=== PATIENT | male | born 1935 | race Caucasian/White ===

== ENCOUNTER 2025-07-09 15:01 | Outpatient (AMB) | payer MEDICARE, SELFPAY ==
--- OUTSIDE RECORDS SUMMARY | 2025-07-09 16:22 | XMS_ITS | Patient Health Record ---
Author Organization [facility] Address [address] [facility] [address] [place] [address] Care Team Providers Care Peanut Sheller Name Role Phone Shaheed Canela Primary Care Provider Unav Jacqueline Troncoso Unavailable [phone] Cornelius Gallego Unavailable [phone] Brian Nichols Unavailable [phone] Allergies Allergen (clinical drug ingredient) Drug/Non Drug Allergy documented on EMR Reaction Allergy Type Onset Date Status clotrimazole Clotrimazole Unknown Drug Allergy A ctive Motrin Unknown Drug Allergy Active Novocain Unknown Drug Allergy Active Saw [place] Unknown Drug Allergy Acti ve diazepam Valium Unknown Drug Allergy Active amlodipine Amlodipine Unknown Drug Allergy Activ e aspirin Aspirin Unknown Drug Allergy Active epinephrine Epinephrine Unknown Drug Allergy Act belinda Mold Unknown Allergy Active Penicillin Unknown Drug Allergy Active Vaccine product containing Streptococcus pneumoniae antigen (medicinal product) Pneumococcal Vaccines Unknown Drug Allergy Active Substance with sulfonamide structure and antibacterial mechanism of action (substance) Sulfa Antibiotics Unknown Drug Allergy Active Tomatoes Unknown Allergy Active vancomycin Vancomycin Unknown Drug Allergy Activ e Reason For Referral Reason Insurance Referral Diagnosis 1 Unspecified open wou nd, left lower leg, initial encounter (S83.860A) Referred Organization [facility] Referred Provider Jacqueline Arreaga Referred Address [address] [place], [place],[address], Referred Provider Specialty General Prac barbara Referral Priority Routine Medications Medication SIG (Take, Route, Frequency, Duration) Notes Start Date End Date Status Metoprolol Succinate 25 MG 1 capsule Ora lly Once a day 04/17/2024 Active Triamcinolone Acetonide 0.025 % 1 application Externally Twice a day 07/18/2024 Active Foam Dressing Bordered - as directed to left leg wound Externally every other day; Duration: 30 days Mepilex foam dressing with silicone border 4x4 12/03/2024 11/28/2025 Active Warfarin Sodium 2 MG 1 tablet Orally Onc e a day Active Loratadine 10 MG 1 tablet Orally twic e a day 10/19/2024 Active Lisinopril 2.5 MG 1 tablet Orally Once a day Active Magnesium Oxide 400 MG 1 tablet as neede d Orally twice daily Active Famotidine 20 MG take one tablet by m outh once daily for stomach acid Orally Once a day 10/19/2024 Active Metoprolol Succinate 100 MG 1 capsule Orally Once a day 10/19/2024 Active Vitamin D 50 MCG (1999) 1 tablet Oral ly Once a day Active Plavix 75 MG 1 tablet Orally Once a day Active Questran 4 GM 1 packet mixed with water or non-carbonated drink Orally Once a day Active Problems Problem Type SNOMED Code ICD Code Onset Dates Problem Status W/U Status Risk Notes Problem Asthma (disorder) (192148914) Asthma, unspecified, unspecified status (493.90) Active confirmed Problem 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 cell carcinoma of skin of other part of trunk (C44.529) Active confirmed Problem Malignant neoplasm of prostate (073919343) Malignant neoplasm of prostate (C61) Active confirmed Problem Essential hypertension (37189627) Essential (primary) hypertension (I10) Active confirmed Problem Eosinophilic esophagitis (704803770) Eosinophilic esophagitis (K20.0) Active confirmed Problem Skin ulcer of calf (459367669) 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) Active confirmed Problem Open wound of left lower leg (3501027401529927 6) Unspecified open wound, left lower leg, subsequent encounter (S81.802D) Active confirmed Problem Peripheral vascular disease (353074582) Peripheral vascular disease (I73.9) Active confirmed Problem Chronic venous insufficiency (21033144) Chronic venous insufficiency (I87.2) Active confirmed Problem Hypertension (85737366) Hypertension (I10) Active confirmed Problem Iron deficiency anemia (23253673) Iron deficiency anemia (D50.9) Active confirmed Vital Signs Heart Rate 62 /min 02/01/2025 Temperature 97.2 degrees Fahrenheit 02/01/2025 Respiratory Rate 18 /min 02/01/2025 Height-cm 175.26 cm 02/01/2025 Oximetry 94 % 02/01/2025 Blood pressure diastolic 62 mm Hg 02/01/2025 Weight-kg 72.12 kg 02/01/2025 Height 69 in 02/01/2025 Blood pressure systolic 129 mm Hg 02/01/2025 Weight 159 lbs 02/01/2025 BMI 23.48 kg/m2 02/01/2025 Encounters Encounter Location Date Provider Diagnosis [address] [address] 10/29/2024 Brian Nichols Iron deficiency anemia D50.9 ; Unspecified open wound, left lower leg, initial encounter S81.802A and Hypertension I10 [address] [address] 11/05/2024 Brian Nichols Iron deficiency anemia D50.9 ; Unspecified open wound, left lower leg, subsequent encounter S81.802D and Hypertension I10 [address] [address] 11/19/2024 Jacqueline Arreaga Iron deficiency anemia D50.9 ; Unspecified open wound, left lower leg, subsequent encounter S81.802D and Hypertension I10 [address] [address] 11/26/2024 Jacqueline Arreaga Iron deficiency anemia D50.9 ; Unspecified open wound, left lower leg, subsequent encounter S81.802D and Hypertension I10 [address] [address] 12/03/2024 Jacqueline Arreaga Iron deficiency anemia D50.9 ; Unspecified open wound, left lower leg, subsequent encounter S81.802D and Hypertension I10 [address] [address] 12/10/2024 Jacqueline Arreaga Non-pressure chronic ulcer of left calf with fat layer exposed L97.222 ; Chronic venous insufficiency I87.2 ; Iron deficiency anemia D50.9 and Hypertension I10 [address] [address] 12/17/2024 Jacqueline Arreaga Non-pressure chronic ulcer of left calf with fat layer exposed L97.222 ; Chronic venous insufficiency I87.2 ; Iron deficiency anemia D50.9 and Hypertension I10 [facility] [address] [address] 01/04/2025 Anzhela Savonina Non-pressure chronic ulcer of left calf with fat layer exposed L97.222 ; Chronic venous insufficiency I87.2 ; Iron deficiency anemia D50.9 and Hypertension I10 [facility] [address] [address] 01/11/2025 Brian Nichols Non-pressure chronic ulcer of left calf with fat layer exposed L97.222 ; Chronic venous insufficiency I87.2 ; Iron deficiency anemia D50.9 and Hypertension I10 [facility] [address] [address] 01/18/2025 Anzhela Savonina Non-pressure chronic ulcer of left calf with fat layer exposed L97.222 ; Chronic venous insufficiency I87.2 ; Peripheral vascular disease I73.9 ; Iron deficiency anemia D50.9 and Hypertension I10 [facility] [address] [address] 01/25/2025 Anzhela Savonina Non-pressure chronic ulcer of left calf with fat layer exposed L97.222 ; Chronic venous insufficiency I87.2 ; Peripheral vascular disease I73.9 ; Iron deficiency anemia D50.9 and Hypertension I10 [facility] [address] [address] 02/01/2025 Anzhela Savonina Non-pressure chronic ulcer of left calf with fat layer exposed L97.222 ; Chronic venous insufficiency I87.2 ; Peripheral vascular disease I73.9 ; Iron deficiency anemia D50.9 and Hypertension I10 [facility] [address] [address] 10/26/2024 Jacqueline Arreaga [facility] [address] [address] 11/05/2024 Brian Nichols [facility] [address] [address] 11/09/2024 Jacqueline Arreaga [facility] [address] [place] [address] 11/12/2024 Jacqueline Arreaga [facility] [address] [place] [address] 01/07/2025 Jacqueline Arreaga [facility] [address] [place] [address] 01/09/2025 Cornelius Gallego Assessments Encounter Date Diagnosis (ICD Code) Assessment Notes Treatment Notes Treatment Clinical Notes Section Notes 10/29/2024 Unspecified open wound, left lower leg, initial encounter (ICD-10 - S81.802A) 10/29/2024 Iron deficiency anemia (ICD-10 - D50.9) 11/05/2024 Unspecified open wound, left lower leg, subsequent encounter (ICD-10 - S81.802D) 11/05/2024 Iron deficiency anemia (ICD-10 - D50.9) 11/19/2024 Iron deficiency anemia (ICD-10 - D50.9) 12/03/2024 Iron deficiency anemia (ICD-10 - D50.9) 12/10/2024 Non-pressure chronic ulcer of left calf with fat layer exposed (ICD-10 - L97.222) 11/26/2024 Iron deficiency anemia (ICD-10 - D50.9) 12/17/2024 Non-pressure chronic ulcer of left calf with fat layer exposed (ICD-10 - L97.222) His CATIA indicates moderate arterial insufficiency, however, he still may be able to heal this mid calf wound. I discussed the importance of continuing to be active and walking and wearing mild compression for waking hours. The ulcer measures slightly smaller and edema is better controlld. He is slowly improving with no signs of skin infection. D/c Santyl and begin Aquacel Ag every other day. After examination, I discussed the indication of debridement and they were agreeable. I then performed debridement to remove devitalized tissues as outlined. He tolerated procedure well. S/S of infection reviewed and when to go to ED. I, Jacqueline Arreaga [employer] L[employer] STRAIGHTENER-Dirk, examined, evaluated , and treated the patient. Dr. Rory Mitchell was available for any questions or concerns that I may have had. 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 I removed the dressing and examined the wound located on the left mid calf. Wound is measuring smaller, wound bed contains slough, epibole is present, no surrounding erythema or signs of infectious process. With patients permission, I performed debridement of the wound as outlined above. Wound was cleaned with saline and Aquacel ag was applied to the wound bed, zinc to periwound secured with dsd. Compression stockings applied. He tolerated the procedure. Lawson returns today for a follow up visit. His wound is improving, measuring smaller. He will continue with Aquacel ag to the wound every other day. Reviewed his ABIs, revealing moderate arterial insufficiency, he is making progress in the healing therefore we will hold off on vascular consult unless wound healing stalls. He will continue with gentle compression. Reviewed signs of infection and when to report. He will return in 1 week for a follow up visit. I spent 22 minutes of direct and indirect care of this patient reviewing records, gathering H&P, evaluation, formulating plan, education and documentation. I Cornelius CASPER-Dirk, examined, evaluated and treated the patient. Dr. Rory Mitchell was available for any question or concerns that I may have had. 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 He endorses dressing changes independently with Aquacel. He continues with compression for BLE edema control with no concerns. On exam, Lawson, vital signs stable, afebrile. We removed the dressing and I examined the wound. There is no foul odor or underlying s/s of infectious property. Left mid-calf wound is noted with improvement based on assessment and measurements from last visit. The wound bed has granulated tissue and minimal slough. The periwound is noted with fibrinous/callused edge. I reviewed indication of debridement, and he was agreeable. I performed debridement of the wound as outlined above to removed devitalized tissue. Wound was cleaned with saline and Aquacel ag was applied to the wound bed, zinc to periwound secured with DSD. Compression stockings applied. He tolerated the procedure. Continue with current treatment and changing every other day continue with weekly wound care follow up I Brian Nichols, MSN, HVAC TECHNICIAN, [employer] STRAIGHTENER-C, examined, evaluated and treated the patient. Dr. Rory Mitchell was available for any question or concerns that I may have had. 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 I removed the dressing and examined the wound located on the left mid calf. Wound is measuring smaller, wound bed contains slough, epibole is present, no surrounding erythema or signs of infectious process. With patients permission, I performed debridement of the wound as outlined above and I used silver nitrate to cauterize epibole. Wound was cleaned with saline and Aquacel ag was applied to the wound bed, zinc to periwound secured with dsd. Compression stockings applied. He tolerated the procedure. Lawson returns today for a follow up visit. His wound is improving, measuring smaller. He will continue with Aquacel ag to the wound every other day. Reviewed his ABIs, revealing moderate arterial insufficiency, he is making progress in the healing therefore we will hold off on vascular consult unless wound healing stalls. He will continue with gentle compression. Reviewed signs of infection and when to report. He will return in 1 week for a follow up visit. I Cornelius Gallego [employer] STRA[employer]-C, examined, evaluated and treated the patient under supervision of Maurisio Mitchell MD, who is present in the office guiding my management plan. I confirm that the care as initially planned and subsequently discussed with Dr. Mitchell is as described and documented. 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 I removed the dressing and examined the wound located on the left mid calf. Wound continues to improve, measuring half the size from last visit, wound bed contains slough, epibole is present, no surrounding erythema or signs of infectious process. There is hemosiderin staining to pretibial area. With patients permission, I performed debridement of the wound as outlined above and I used silver nitrate to cauterize epibole. Wound was cleaned with saline and Aquacel ag was applied to the wound bed, zinc to periwound secured with dsd. Compression stockings applied. He tolerated the procedure. Lawson returns today for a follow up visit. His wound is improving, measuring significantly smaller today. He will continue with Aquacel ag to the wound every other day. Reviewed his ABIs, revealing moderate arterial insufficiency, he is making progress in the healing therefore we will hold off on vascular consult unless wound healing stalls. He will continue with gentle compression. Reviewed signs of infection and when to report. He will return in 1 week for a follow up visit. I Cornelisu ALBERTO, examined, evaluated and treated the patient. Dr. Rory Mitchell was available for any question or concerns that I may have had. 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 I removed the dressing and examined the wound located on the left mid calf. Wound has re-epithelialized, there is a dry scab present, no surrounding erythema or signs of infection. We applied skin prep and covered with dsd. I advised him to keep the scab covered until the scab falls off. Encouraged daily moisturizer. He does not need any further follow up. Thank you for allowing us to participate in your care. I Cornelius ALBERTO, examined, evaluated and treated the patient. Dr. Rory Mitchell was available for any question or concerns that I may have had. 02/01/2025 Chronic venous insufficiency (ICD-10 - I87.2) 01/25/2025 Chronic venous insufficiency (ICD-10 - I87.2) 01/18/2025 Peripheral vascular disease (ICD-10 - I73.9) 01/11/2025 Chronic venous insufficiency (ICD-10 - I87.2) 01/04/2025 Iron deficiency anemia (ICD-10 - D50.9) 12/17/2024 Chronic venous insufficiency (ICD-10 - I87.2) 12/03/2024 Unspecified open wound, left lower leg, subsequent encounter (ICD-10 - S81.802D) 12/10/2024 Chronic venous insufficiency (ICD-10 - I87.2) 11/26/2024 Unspecified open wound, left lower leg, subsequent encounter (ICD-10 - S81.802D) 11/19/2024 Unspecified open wound, left lower leg, subsequent encounter (ICD-10 - S81.802D) 11/05/2024 Hypertension (ICD-10 - I10) 10/29/2024 Hypertension (ICD-10 - I10) 11/19/2024 Hypertension (ICD-10 - I10) 11/26/2024 Hypertension (ICD-10 - I10) 12/03/2024 Hypertension (ICD-10 - I10) 01/11/2025 Iron deficiency anemia (ICD-10 - D50.9) 01/04/2025 Hypertension (ICD-10 - I10) 12/10/2024 Iron deficiency anemia (ICD-10 - D50.9) 12/17/2024 Iron deficiency anemia (ICD-10 - D50.9) 01/25/2025 Peripheral vascular disease (ICD-10 - I73.9) 02/01/2025 Peripheral vascular disease (ICD-10 - I73.9) 01/18/2025 Iron deficiency anemia (ICD-10 - D50.9) 01/25/2025 Iron deficiency anemia (ICD-10 - D50.9) 02/01/2025 Iron deficiency anemia (ICD-10 - D50.9) 01/18/2025 Hypertension (ICD-10 - I10) 01/11/2025 Hypertension (ICD-10 - I10) 12/17/2024 Hypertension (ICD-10 - I10) 12/10/2024 Hypertension (ICD-10 - I10) 01/25/2025 Hypertension (ICD-10 - I10) 02/01/2025 Hypertension (ICD-10 - I10) 10/29/2024 Tara Pathak is an [id number]-rke-male, presents today for initial evaluation and treatment of wound of left lower extremity Past medical history is significant for HTN, BPH, NOA, squamous cell carcinoma of trunk, DVT, asthma The patient reports that the wound was first noted 07/14/24 after bumping leg on table and [facility] has [facility] however he has been to [facility] and ED with no ABX at this time. He has oversite of [facility] and was seen last week. current treatment with aquacel but reports sticking to his leg. So today will add adaptic and obtain catia at next visit, On assessment today, Lawson is noted to be afebrile and other VS were within normal limits. The patient denies pain or discomfort related to wound. We removed dressings, with no suggestive s/s of an underlying infectious process. There was no foul odor noted. Wound located to left later lower leg, trauma wound: His wound is noted with hypergranulated tissue to the wound bed with mod drainage. Fibrnous periwound with dry slough. After examination, I discussed the indication of debridement and they were agreeable. I then performed debridement to remove devitalized tissues as outlined. He tolerated procedure well. Additionally, Silver nitrate was also applied to the hypergranulated areas. The wound site were then cleansed with wound cleanser and thereafter, we applied adaptinc then aquacell onto the wound site and zinc to aura wound areas. The site were then covered with a dry dressing. Patient was educated on elevating their legs and protect wound site Patient will be performing dressing changes every other day need CATIA done for arterial to ensure good blood flowS/S of infection reviewed and when to go to EDPatient will have FU in one week Reviewed past medical records, labs, hospitalizations, performed a complete wound assessment to assist in the identification of underlying cause of the wound to individualize treatment plan going forward. Will obtain consultations as indicated from different disciplines if not already involved with current care, including but not limited to: vascular intervention, endocrine, diabetic and nutrition education, infectious disease, dermatology, surgery. Will continue to review and assess interventions including but not limited to orthotics, and compression therapy, CATIA, labs, and cultures. Documentation will be provided to primary physicians or referring physicians to keep them informed of patients' progress. Due to the many factors that impact the healing of wounds, including but not limited to endocrine disorder, autoimmune disorders, Diabetes, weight gain, cardiovascular disease, poor circulation, and medications, and more not listed, and the role they play on the delay in wound healing, all referrals will be made promptly as well as discussed with patient prior too. We reviewed the importance of multidisciplinary team to maximize wound outcomes.patient verbalized understand and denies questions or concerns at this time A total of 35 minutes was spent on this visit (face to face and non face to face) documenting HPI and performing physical exam, reviewing previous notes and testing, reviewing and adjusting treatment plan, counseling the patient on treatment choices, disease process, expected outcomes, and documenting the findings in the note. Gwen Nichols, MSN, HVAC TECHNICIAN, [employer] STRAIGHTENER-C, examined, evaluated , and treated the patient. Dr. Rory Mitchell was available for any questions or concerns that I may have had. 11/05/2024 Other Lawson presents today with his with for follow-up treatment of wound of left lower extremity. They report dressing changes regularly with current treatment consisting of Adaptic, then Aquacel to wound bed with zinc to periwound and dry dressing every other day. No other acute concerns at today's visit. On assessment today, Lawson is noted to be afebrile and other VS were within normal limits. The patient denies pain or discomfort related to wound. We removed dressings, with no suggestive s/s of an underlying infectious process. There was no foul odor noted. Wound located to left later lower leg, trauma wound has improved since last visit based on assessment and measurements: The wound is noted with granulated tissue to the wound bed with mod drainage. Fibrinous periwound. After examination, I discussed the indication of debridement and they were agreeable. I then performed debridement to remove devitalized tissues as outlined. He tolerated procedure well. Additionally, Silver nitrate was also applied to the hypergranulated areas. The wound site were then cleansed with wound cleanser and thereafter, we applied Adaptic then Aquacel onto the wound site and zinc to aura wound areas. The site were then covered with a dry dressing. Patient was educated on elevating their legs and protect wound site Patient and his will be performing dressing changes every other day need CATIA done for arterial to ensure good blood flow at next visitS/S of infection reviewed and when to go to ED 11/05/24: [facility] at todays visitPatient will have FU two weeks I Brian Nichols, MSN, HVAC TECHNICIAN, [employer] STRAIGHTENER-C, examined, evaluated, and treated the patient. Dr. Rory Mitchell was available for any questions or concerns that I may have had. 11/19/2024 Other His wound is stable and is slow healing and there are no signs of skin infection. He does have chronic edema and I highly recommend using compression in the form of Tubigrip. Wear during waking hours only. He will cont Adaptic, then Aquacel to wound bed with zinc oxide to periwound and dry dressing every other day. After examination, I discussed the indication of debridement and they were agreeable. I then performed debridement to remove devitalized tissues as outlined. He tolerated procedure well. Additionally, Silver nitrate was also applied to the hypergranulated areas. The wound site were then cleansed with wound cleanser and thereafter, we applied Adaptic then Aquacel onto the wound site and zinc to aura wound areas. The site were then covered with a dry dressing. Patient was educated on elevating their legs and protect wound site Patient and his will be performing dressing changes every other day CATIA to be rescheduled for next week to assess his arterial perfusion.S/S of infection reviewed and when to go to ED. I have personally spent 20 minutes total time today in preparation, patient care, and documentation for this visit, including the following: review of clinical lab tests; review of medical tests/procedures/ser vices. I, Jacqueline ALBERTO, examined, evaluated , and treated the patient. Dr. Rory Mitchell was available for any questions or concerns that I may have had. 11/26/2024 Other His CATIA indicates moderate arterial insufficiency, however, he still may be able to heal this mid calf wound. I discussed the importance of continuing to be active and walking. His wound is stable and is slow healing and there are no signs of skin infection.I recommend beginning Santyl daily. I sent a Rx to the [place] pharmacy in [place]. Until he receives this, he will cont Adaptic, then Aquacel to wound bed with zinc oxide to periwound and dry dressing every other day. After examination, I discussed the indication of debridement and they were agreeable. I then performed debridement to remove devitalized tissues as outlined. He tolerated procedure well. Today, we used SSD cream to the wound bed and barrier cream to the periwound. Patient was educated on elevating their legs and protect wound site Patient and his will be performing dressing changes daily. they would prefer [facility] to assist with dressing changes, so we can set up this referral. S/S of infection reviewed and when to go to ED. I have personally spent 20 minutes total time today in preparation, patient care, and documentation for this visit, including the following: review of clinical lab tests; review of medical tests/procedures/ser vices. Jacqueline Hidalgo, examined, evaluated , and treated the patient. Dr. Rory Mitchell was available for any questions or concerns that I may have had. 12/03/2024 Other He began using Santyl last week and there is healthy granulation tissue without evidence of infection. His CATIA indicates moderate arterial insufficiency, however, he still may be able to heal this mid calf wound. I discussed the importance of continuing to be active and walking and wearing mild compression for waking hours. He will try CARLOS wrap for waking hours since he did not like the tubigrip. I asked him to elevate ankles to heart level when resting. It sounds as though he is up and active most of the day shopping, doing errands and cooking meals. I sent a Rx for 4x4 Mepilex silicone dressing with gentle borderd to the [place] pharmacy in [place] today. After examination, I discussed the indication of debridement and they were agreeable. I then performed debridement to remove devitalized tissues as outlined. He tolerated procedure well. Today, we used his Santyl to the wound bed and barrier cream to the periwound. S/S of infection reviewed and when to go to ED. IJacqueline, examined, evaluated , and treated the patient. Dr. Rory Mitchell was available for any questions or concerns that I may have had. 12/10/2024 Other He is slowly improving with no signs of skin infection. Cont using Santyl daily. His CATIA indicates moderate arterial insufficiency, however, he still may be able to heal this mid calf wound. I discussed the importance of continuing to be active and walking and wearing mild compression for waking hours. He will try mild compression stockings OTC 8-15mmHg for waking hours since he did do well with CARLOS or tubigrip. I asked him to elevate ankles to heart level when resting. It sounds as though he is up and active most of the day shopping, doing errands and cooking meals. After examination, I discussed the indication of debridement and they were agreeable. I then performed debridement to remove devitalized tissues as outlined. He tolerated procedure well. Today, we used his Santyl to the wound bed and barrier cream to the periwound. S/S of infection reviewed and when to go to ED. I, Jacqueline ALBERTO, examined, evaluated , and treated the patient. Dr. Rory Mitchell was available for any questions or concerns that I may have had. 01/18/2025 Other I, Maurisio Mitchell MD confirm that Alejandrajavad Julián ALBERTO understands and adheres to the guidelines of the established clinical protocols in the office. I confirm the above care provided was rendered under my general supervision as initially planned and subsequently discussed and supervised by me. 01/25/2025 Other Plan Of Treatment No Information Insurance Providers Payer Name Payer Address Payer Phone Subscriber Number Group Number Insured Name Patient Relationship to Insured Coverage Start Date Coverage End Date [address] [id number] Lawson Grewal Self - patient is the insured Medicare [address] [facility] [place] [id number] Lawson Grewal Self - patient is the insured Medical (General) History Medical History History ICD Code Benign prostatic hyperplasia without low er urinary tract symptoms N40.0 Intestinal infections due to clostridium difficile 008.45 Elevated prostate specific antigen (PSA) 790.93 Eosinophilic esophagitis K20.0 Essential (primary) hypertension I10 Unspecified hearing loss 389.9 Hyperkalemia E87.5 Iron deficiency anemia D50.9 Malignant neoplasm of prostate C61 Malignant neoplasm of prostate C61 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
--- OUTSIDE RECORDS SUMMARY | 2025-07-09 16:23 | XMS_ITS | Patient Health Record ---
Author Organization [facility] Address [address] [place] [id number] Care Team Providers Care Pad Extraction Tender Name Role Phone Marcell Robison Jr Reason For Referral No Information Plan Of Treatment No Information
--- OUTSIDE RECORDS SUMMARY | 2025-07-09 16:23 | XMS_ITS | Clinical Summary ---
Author Organization [facility] Address [address] [place] [address] Phone Care Team Providers Care Donor Processor Name Role Phone Naga Bah MD Primary Care Provider + Allergies Active Allergy Reactions Criticality Noted Date Comments Amlodipine 10/16/2020 Aspirin 01/12/2018 Clotrimazole 10/15/2024 Epinephrine 10/16/2020 Ferrous Sulfate 10/15/2024 Furosemide 03/26/2024 Mold 10/15/2024 Ibuprofen Pain Low 10/16/2020 Procaine 01/12/2018 Ofloxacin 03/15/2025 itchiness Penicillins Hives 10/16/2020 Pneumococcal 23-Nuria Ps Vaccine 10/16 Saw [place] 03/15/2025 Simvastatin 03/15/2025 Sulfa (Sulfonamide Antibiotics) 12/23 Tetanus Immune Globulin 03/15/2025 Tomato 10/16/2020 Diazepam 07/21/2018 Vancomycin 10/16/2020 Medications lisinopril (PRINIVIL,ZESTR IL) 2.5 MG tablet TAKE ONE TABLET BY MOUTH ONCE DAILY TO CONTROL BLOOD PRESSURE 1 Active famotidine (PEPCID) 20 MG tablet Take 20 mg by mouth nightly at bedtime. 0 Active fluticasone propionate (FLONASE) 50 mcg/actuation nasal spray INSTILL 2 SPRAYS INTO EACH NOSTRIL DAILY FOR NASAL IRRITATION/INFLA MMATION 0 Active loratadine (CLARITIN) 10 mg tablet TAKE ONE TABLET BY MOUTH ONCE DAILY NEEDED FOR ALLERGY 0 Active aspirin 81 mg chewable tablet Take 1 tablet (81 mg total) by mouth daily. 1 Active Additional Information Patient not taking.Reported on 10/15/2024 atorvastatin (LIPITOR) 80 MG tablet Take 1 tablet (80 mg total) by mouth daily. 1 Active Additional Information Patient not taking.Reported on 10/15/2024 clopidogrel (PLAVIX) 75 mg tablet Take 1 tablet (75 mg total) by mouth daily. 1 Active nitroglycerin (NITROSTAT) 0.[address] 1 tablet (0.4 mg total) under the tongue every 5 (five) minutes as needed for chest pain. 1 Active Additional Information Patient not taking.Reported on 03/26/2022 heparin 100 units/mL infusion Inject 0-1,817.9 Units/hr into the vein continuous. 1 Active Additional Information Patient not taking.Reported on 10/15/2024 warfarin (COUMADIN) 2 MG tablet Take 4 mg by mouth nightly at bedtime. 2 Active metoprolol succinate (TOPROL-XL) 50 MG 24 hr tabletIndicatio ns:Medication dose decreased Take 1.5 tablets (75 mg total) by mouth daily. 135 tablet 3 2 Active furosemide (LASIX) 40 MG tablet Take 1 tablet (40 mg total) by mouth daily for 2 days. 2 tablet 4 Active magnesium oxide-Mg AA chelate (MAGNESIUM, OXIDE/AA CHELATE,) 300 mg Cap Take 400 mg by mouth. 3 Active amLODIPine (NORVASC) 2.5 MG tablet Take 2.5 mg by mouth. 4 Active Active Problems Problem Noted Date Diagnosed Date Acute coronary syndrome 09/09/2021 Assessment & Plan (03/15/2025 9:47 AM EDT): This patient had PCI to the grafts after bypass surgery but has not had any interventions done in quite some time I have ordered him an echo Assessment & Plan (09/25/2021 1:38 PM EDT): Patient doing well after discharge from [facility]. Continue cardiac medications as documented. Patient assured that he can continue 75 mg daily metoprolol as he is feeling better at this dose (it was decreased to 50 mg daily back in January as it was thought that the higher dose may be contributing to fatigue). Assessment & Plan (09/10/2021 1:20 PM EDT): Patient of Dr. Feliz presenting with many hours of substernal chest pain radiating to the jaw, with enzyme evidence of non-ST elevation RI. His EKG did not show any acute ischemia. Symptoms improved with sublingual nitro. His cpr ambulance driver has recommended aspirin(patient has a documented allergy to aspirin but he states that this was after taking it for an extended period of time and it made him short of breath , he tolerated today's dosing fine.), Statin, and heparin drip. Plan remains for cardiac cath later this afternoon. has requested that we bring his INR down slightly for the procedure. He is okay with stopping the heparin drip, with plans to restart it after the procedure. Discussed with blood bank, FFP 3 units to be given stat, with PT/INR draw about 2 hours after that. His lungs were going in the right direction he will likely have this procedure this afternoon. Hypercoagulable state 01/04/2018 Assessment & Plan (07/21/2018 2:38 PM EDT): He has been taking Coumadin for years. He is interested in coming off of the Coumadin and replacing it with eliquis. I have prescribed 5 mg of eliquis to be taken twice daily. He has been off of his Coumadin for about 6 days. He will start the eliquis tomorrow as per the suggestion of his blue print control clerk. 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 He is unable to tolerate statins. He has tried 5 of them. He is only taking fish oil. He tells me his lipids are checked by his physician at the [place]. His blood pressure today is normal. He exercises regularly and his tells me that they follow a heart healthy diet. We will arrange for follow-up with Dr. Salas in 6 months. Mixed hyperlipidemia 12/14/2017 Assessment & Plan (03/15/2025 9:48 AM EDT): LDL should be aggressively controlled at less than 70 Assessment & Plan (09/25/2021 1:39 PM EDT): Reports PCP is following yearly lipid panel. Continue 80 mg atorvastatin daily. Other pulmonary embolism without acute cor pulmo nale 12/14/2017 Assessment & Plan (09/10/2021 1:20 PM EDT): Patient with a history of DVT PE. He is maintained on Coumadin 4 mg daily. INR was therapeutic on admission. As above Encounters Date Type Department Care Team Description 06/18/2025 Telephone [facility] [place] [address], [address] [place] [address] Lawson Gamez, 05/09/2025 3:03 PM EDT - 05/09/2025 11:59 PM EDT Hospital Encounter [place] [address] Lawson Gamez, DO Discharge Disposition: Home or Self Care 03/15/2025 Procedure Pass [place] [address] from Last 3 Months Immunizations Immunization Administration Dates Next Due DTaP, unspecified formulation 06/21/2012 Influenza, Unspecified Formulation 08/21/2007 Pneumococcal, Unspecified Formulation 03/20/2004 Td, unspecified formulation 11/21/2002 Family History Medical History Relation Comments Lupus Daughter 1 No Known Problems Son 1 No Known Problems Son 2 No Known Problems Son 3 Relation Status Comments Daughter 1 Daughter 2 Alive Father Mother Son 1 Alive Son 2 Alive Son 3 Alive Social History Tobacco Use Types Packs/Day Years Used Date Smoking Tobacco: Former Smokeless Tobacco: Never Tobacco Cessation:Counseling Given: Not Answered Comments:quit 62 years ago Alcohol Use Standard Drinks/Week Comments Yes 0 (1 standard drink = 0.6 oz pur e alcohol) beer once weekly Education Answer Date Recorded Are you interested in more education? Not on celina e 03/18/2023 Are you concerned about learning? Not on file 03/18/2023 No 03/18/2023 No 03/18/2023 Digital Access Answer Date Recorded No 04/16/2023 No 04/16/2023 Reliable internet access at home? Not on file 04/16/2023 Device with a working camera? Not on file Intimate Partner Violence Answer Date R ecorded Are you denied basic needs s uch as food, clothing, or medical care? No 02/01/2025 In the past 12 months have y ou been in a relationship with a person who hurts, threatens, or tries to control you? No 02/01/2025 Are you denied basic needs s uch as food, clothing, or medical care? No 02/01/2025 In the past 12 months have y ou been in a relationship with a person who hurts, threatens, or tries to control you? No 02/01/2025 Sex and Gender Information Value Date Recorded Sex Assigned at Male 09/09/2021 5:35 AM EDT Legal Sex Male 10:14 PM EDT Gender Identity Male 09/09/2021 5:35 AM EDT Sexual Orientation Straight 09/09/2021 5: 35 AM EDT Last Filed Vital Signs Vital Sign Reading Time Taken Comments Blood Pressure 110/58 03/15/2025 9:13 AM EDT Pulse 65 03/15/2025 9:13 AM EDT Temperature 36.4 C (97.5 F) 02/01/2025 4:42 PM EDT Respiratory Rate 20 02/01/2025 4:42 PM EDT Oxygen Saturation 95% 03/15/2025 9:13 AM EDT Inhaled Oxygen Concentration - - Weight 69.4 kg (153 lb) 03/15/2025 9:13 AM EDT Height 175.3 cm (5' 9.02 ) 03/15/2025 9:13 AM ED T Body Mass Index 22.58 03/15/2025 9:13 AM EDT Plan of Treatment Upcoming Encounters Date Type Department Care Team (Late st Contact Info) Description 07/23/2025 1:45 PM EDT Office Visit [facility] [address], [address] [place] [address] Lawson Gamez DO [address] [place] [address] [phone] [email or web address] Health Maintenance Due Date Last Done Comments DEPRESSION SCREENING 1947 ZOSTER VACCINES (1 of 2) 1986 RSV VACCINE (1 - 1-dose 75+ series) 2011 Adult Td,Tdap Booster 06/21/2022 06/21/2012 , 01/20/2008, 11/21/2002, Additional history exists COVID-19 VACCINE ( season) 2024 CREATININE LEVEL 02/01/2026 02/01/2025, 04/2024, 03/16/2024, Additional history exists POTASSIUM LEVEL 02/01/2026 02/01/2025, 05/0 04/2024, 03/16/2024, Additional history exists HEPATITIS A VACCINES Aged Out No long er eligible based on patient's age to complete this topic HIB VACCINES Aged Out No longer eligi ble based on patient's age to complete this topic MENINGOCOCCAL VACCINES (ACWY) Aged Out No longer eligible based on patient's age to complete this topic MENINGOCOCCAL VACCINES (B) Aged Out N o longer eligible based on patient's age to complete this topic Medical Devices Not on file Procedures Procedure Name Priority Date/Time Associated Diagnosis Comments TTE COMPREHENSIVE Routine 05/09/2025 4:1 0 PM EDT Shortness of breath BASIC METABOLIC PANEL STAT 02/01/2025 1:22 PM EDT from Last 3 Months or Most Recently Relevant to Health Maintenance Results * TTE COMPREHENSIVE (05/09/2025 4:10 PM EDT) Height 175 cm Weight 69 kg Systolic BP 139 mmHg Diastolic BP 69 mmHg Interventricular Septum Thickness 12 6 - 11 mm Left Ventricle Internal Diameter End Diastole 64 42 - 58 mm Left Ventricle Internal Diameter End Systole 46 <40 mm Left Ventricular Outflow Tract Diameter 22.0 mm Left Ventricular Posterior Wall Thickness 11 6 - 11 mm Left Ventricle Ea Lateral Wave Speed 7.3 cm/s Left Ventricle Ea Septal Wave Speed 3.4 cm/s Ejection Fraction 62 50 - 75 Percent Left Atrium Dimension Anterior-Posterior 53 15 - 40 mm Aortic Valve Regurgitation Pressure Half Time 854 ms Aortic Valve Peak Velocity 1.4 m/s Aortic Valve Peak Gradient 8 mmHg Aortic Valve Mean Gradient 4 mmHg Aortic Valve Time Velocity Integral 279.0 mm Aortic Arch Diameter 27 mm Aortic Sinus Diameter 40 <40 mm Ascending Aorta Diameter 30 <36 mm Inferior Vena Cava Diameter 25 <21 mm Mitral Valve Aliasing Velocity 30.8 cm/s Mitral Valve PISA Radius 1.30 cm Mitral Valve Regurgitation Time Volume Integral 157.0 cm Mitral Valve Mean Gradient 3 mmHg Mitral Valve Peak Velocity 551.0 cm/s Mitral Valve Peak Gradient 10 mmHg Left Ventricle E Wave Speed 163.0 cm/s Mitral Valve Area Continuity Equation 2.10 cm2 Pulmonary Artery End Diastolic Velocity 0.5 m/s Pulmonary Valve Peak Velocity 1.4 m/s Pulmonary Valve Peak Gradient 7 mmHg Right Ventricle Basal Diameter 55 25 - 41 mm Tricuspid Valve Peak Velocity 3.3 m/s Raw LV EF% 48 % MV E/E' Tissue Velocity Lateral 22.33 Mitral Valve EROA 0.59 cm2 Relative Wall Thickness 0.34 0.22 - 0.42 MV E/e' septal 47.94 Left Ventricle E/e' Average 35.1 Aortic Valve Prosthetic Peak Gradient 8 mmHg Aorta Sinus Index by Height 2.29 cm/m Aorta Sinus CSA index by Height 7.18 cm2/m Asc Aorta CSA Index by Height 4.04 cm2/m Mitral Valve Prosthetic Peak Gradient 10 mmHg Mitral Valve Prosthetic Mean Gradient 3 mmHg Mitral Valve Regurgitant Volume PISA Equation 93 ml Right Ventricle to Right Atrium Pressure Gradient 44 mmHg Right Ventricle Peak Systolic Pressure (Assuming RAP 10) 54 mmHg MGB CV ECHO TV RVSP (ASSUMING RAP OF 5) 49 mmHg RVSP (Exclusive of RAP) 44 mmHg Pulmonic Valve Prosthetic Peak Gradient 7 mmHg Echo E/Ea 47.94 Left Atrial Volume 118 mL Left Atrial Volume Index by Height 67 mL/m Aortic Valve Prosthetic Mean Gradient 4 mmHg Body Surface Area 1.84 m2 Left Atrial Volume Index 64 16 - 34 mL/m2 Right Ventricle Peak Systolic Pressure 59 mmHg Left Ventricle indexed to BSA 179.5 g/m2 Right Atrium Area 31 cm2 Right Atrium Area index 17 cm2/m2 Aortic Valve Sinus Index by BSA 22 mm/m2 Ascending Aorta Index 16 mm/m2 Right Atrium Pressure Estimated 15 mmHg Pulmonary Artery End Diastolic Pressure 16 mmHg Ascending Aorta Index 16 mm Aortic Sinus Index 22 mm Ascending Aorta Diameter 16 mm Aortic Valve Sinus Index 1 22 20 - 32 mm AO ASC DIAM BSA INDEX 16.30 Anatomical Region Laterality Modality Heart Ultrasound Narrative 05/10/2025 9:43 AM EDT Images from the original result were not included. 1. The indication for the study is dyspnea on exertion. The estimated ejection fraction is normal or low normal at 50 to 55%. There is grade 2 diastolic impairment and mild concentric LVH. Regional wall motion is normal. 2. Severe dilatation to the RV cavity with moderately reduced RV function. The left atrium is severely dilated. 3. Trileaflet aortic valve there is no evidence of aortic stenosis, there is mild aortic regurgitation the ascending aortic dimension is 30 mm. 4. Severe mitral regurgitation with anteromedial and eccentrically directed jet the Pisa measures 1.3 cm. There is moderate tricuspid insufficiency, the PA pressure is 60 mmHg. 5. Normal pericardium and when compared to the prior echocardiogram that was done on September 09, 2021, both the pulmonary artery pressure and the severity of the mitral regurgitation has significantly increased. Left Ventricle The left ventricle is moderately dilated. There is mild concentric hypertrophy. Left ventricular systolic function is at the lower limits of normal. The LV ejection fraction is 50-55% (visually estimated). Simpsons biplane EF 50%. There is abnormal diastolic function. There is Grade II diastolic dysfunction. Right Ventricle The right ventricle is severely dilated. The RV basal dimension is 55 mm. There is moderately reduced right ventricular systolic function. Left Atrium The left atrium is severely dilated. The left atrial volume index by BSA is 64 mL/m2. Right Atrium The right atrium is severely dilated. The right atrial area is 31 cm2. Mitral Valve There is moderate thickening of both mitral leaflets. There is no mitral stenosis. There is severe mitral regurgitation with an anteromedially eccentrically directed jet. The mitral valve effective regurgitant orifice area is calculated at 0.59 cm2, by PISA method. The mitral valve proximal isovelocity surface area radius is 1.30 cm. The mitral regurgitant volume is calculated at 93 ml, by PISA method. Tricuspid Valve The tricuspid valve appears normal. There is no tricuspid stenosis. There is moderate tricuspid regurgitation with a centrally directed jet. The RV systolic pressure was calculated at 59 mmHg (using TR peak velocity of 3.3 m/s and assuming an RA pressure of 15 mmHg). Aortic Valve The aortic valve is tricuspid. There is leaflet thickening. There is no aortic stenosis. There is mild aortic regurgitation. The regurgitation pressure half time is 854 ms. The aortic sinuses are moderately dilated. The aortic sinus diameter is 40 mm. Pulmonic Valve The pulmonic valve appears normal. There is no pulmonic stenosis. There is severe pulmonic regurgitation. Pericardium There is no pericardial effusion. General Findings The image quality was good (2). Technique(s) used in the evaluation: Multiplane, Color flow Doppler, Spectral Doppler and Epiaortic scan. Adequate windows include: parasternal, apical, subcostal and suprasternal. The predominant rhythm during the study was sinus. Patient tolerated the procedure well. Comparison Findings Compared to prior TTE on 09/09/2021, IAS/IVS The interatrial septum appears normal. us Lawson Gamez DO CV ECHO ORDERABLES Final Resu lt * (ABNORMAL) Basic metabolic panel (02/01/2025 1:22 PM EDT) SODIUM 139 133 - 146 mmol/L [facility] CHLORIDE 105 96 - 108 mmol/L [facility] POTASSIUM 4.4 3.3 - 5.1 mmol/L [facility] CO2 22 21 - 35 mmol/L [facility] BUN 24(H) 6 - 19 mg/dL [facility] CREATININE 1.30 0.5 - 1.5 mg/dL [facility] GLUCOSE 136(H) 70 - 99 mg/dL [facility] CALCIUM 8.9 8.4 - 10.3 mg/dL [facility] EGFR 53(L) >59 mL/min/1.7 3m2 [facility] Comment:Estimated glomerular filtration rate calculated using the CKD-EPI refit equation. ANION GAP 16 10 - 20 mmol/L [facility] Blood 02/01/2025 1:22 PM EDT 02/01/2025 1:27 PM EDT us Jonnathan Tariq MD LAB BLOOD ORDERABLES Final Resu lt [facility] [address] [place] [address] from Last 3 Months or Most Recently Relevant to Health Maintenance Insurance [employer] [place] H[employer] REPLACEMENT [facility] MEDICARE HMO REPLACEMENT Member Subscriber Plan / Payer (Ef fective 2018-Present) Name:Lawson Grewal Relation to Subscriber:Self Name:Lawson Grewal Payer ID:Not on file Type:Medicare Address: [place] [id number] [facility] [employer] [place] [employer] HMO REPLACEMENT [facility] Member Subscriber Plan / Payer (Ef fective 2018-Present) Name:Lawson Grewal Relation to Subscriber:Self Name:Lawson Grewal Payer ID:Not on file Type:Medicare Address: [place] [id number] [facility] [employer] [place] [employer]IC[employer] HMO REPLACEMENT [facility] Member Subscriber Plan / Payer (Ef fective 2018-Present) Name:Lawson Grewal Relation to Subscriber:Self Name:Lawson Grewal Payer ID:Not on file Type:Medicare Address: [place] [id number] [facility] [employer] [place] [employer] HMO REPLACEMENT [facility] Member Subscriber Plan / Payer (Ef fective 2018-Present) Name:Lawson Grewal Relation to Subscriber:Self Name:GrewalLawson Payer ID:Not on file Type:Medicare Address: [address] [facility] MEDICARE HMO REPLACEMENT Member Subscriber Plan / Payer (Ef fective 2018-Present) Name:Lawson Grewal Relation to Subscriber:Self Name:Lawson Grewal Payer ID:Not on file Type:Medicare Address: [address] Advance Directives For more information, please contact: [phone] (9AM - 5PM [facility], Tuesday-Tuesday) * DNR/DNI (No CPR/No Intubation) (Latest Code Status on File) Date Activated Date Inactivated Comments 09/10/2021 9:33 AM Question Answer Comments Code Status Confirmed With: Patient Code Status Communicated To: Inpatient Attending Care Teams Donor Processor Relationship Specialty Start Date End Date Naga Bah MD [address] [facility] [place] [address] PCP - General Internal Medicine 02/01/25 Additional Source Comments The information contained in this document represents components of the legal health record. It is not the complete legal health record.[facility]
== END 2025-07-09 15:12 | disposition home or self-care (01) ==
LOC: HO.HMGAL 15:01
PROVIDERS: PCP Internal Medicine; Visit Provider Registered Nurse Emergency
DX: J30.89 Other allergic rhinitis (principal)
CPT/HCPCS: 95117; 95165

== ENCOUNTER 2025-08-28 11:24 | Outpatient (AMB) | payer MEDICARE, SELFPAY | END 2025-08-28 11:24 | disposition home or self-care (01) | LOC: HO.HMGAL 11:24 | PROVIDERS: PCP Internal Medicine; Visit Provider Registered Nurse Emergency | DX: J30.89 Other allergic rhinitis (principal) | CPT/HCPCS: 95117; 95165 ==

== ENCOUNTER 2025-10-14 15:15 | Outpatient (AMB) | payer MEDICARE, SELFPAY ==
--- OUTSIDE RECORDS SUMMARY | 2025-10-14 19:58 | XMS_ITS | Encounter Summary ---
Author Organization [facility] Address [email or web address] [place] [address] Phone Care Team Providers Care Bundle Sorter Name Role Phone Naga Bah MD Primary Care Provider + Encounter Details Date Type Department Care Team (Late st Contact Info) Description 03/15/2025 Procedure Pass [facility] [address] [place] [address] Social History Tobacco Use Types Packs/Day Years Used Date Smoking Tobacco: Former Smokeless Tobacco: Never Comments:quit 62 years ago Alcohol Use Standard [...] Orientation Straight 09/09/2021 5: 35 AM EDT documented as of this encounter Plan of Treatment Upcoming Encounters Date Type Department Care Team (Late st Contact Info) Description 07/23/2025 Procedure Pass Echo Lab [address] [place] [address] 10/23/2025 2:30 PM EST Appointment Echo Lab [address] [place] [address] Lawson Gamez [address] [place] [phone] 11/04/2025 1:00 PM EST Office Visit [facility] [address] [place] [address] 3rd Floor, [address] [place] [phone] Lawson Gamez, [address] [address] Shania Caldera, POCKET [employer]SEM[employer]ER [address] [place] [phone] documented as of this encounter Visit Diagnoses Not on filedocumented in this encounter Care Teams Bundle Sorter Relationship Specialty Start Date End Date Naga Bah MD [address] [place] [address] [address] [place] [address] PCP - General Internal Medicine 02/01/25 documented as of this encounter Additional Source Comments The information contained in this document represents components of the legal health record. It is not the complete legal health record.[facility]
--- OUTSIDE RECORDS SUMMARY | 2025-10-14 19:58 | XMS_ITS | Encounter Summary ---
Author Organization [facility] Address [address] [place] [address] Phone Care Team Providers Care Mortgage Processor Name Role Phone Naga Bah MD Primary Care Provider + Naga Bah MD Primary Care Provider + Encounter Details Date Type Department Care Team (Late st Contact Info) Description 05/31/2022 Procedure Pass Non-Invasive Cardiology [address] [place] [address] Social History Tobacco Use Types Packs/Day Years Used Date Smoking Tobacco: Former Smokeless Tobacco: Never Comments:quit 62 years ago Alcohol Use Standard Drinks/Week Comments Yes 0 (1 standard drink = 0.6 oz pur e alcohol) beer once weekly Sex and Gender Information Value Date Recorded Sex Assigned at Male 09/09/2021 5:35 AM EDT Legal Sex Male 10:14 PM EDT Gender Identity Male 09/09/2021 5:35 AM EDT Sexual Orientation Straight 09/09/2021 5: 35 AM EDT documented as of this encounter Functional Status * Calculated C-SSRS Risk Score (Lifetime/Recent) Answer Date of Assessment Author No Risk Indicated 05/31/2022 3:05 PM EDT Carmenza Faith, RN * [place] Suicide Severity Rating Scale (Screener/Recent Self-Report) Question Answer Date of Assessment Author 1. Wish to be (Past 1 Month) No 022 3:05 PM EDT Carmenza Faith, NEEMA 2. Non-Specific Active Suici evaristo Thoughts (Past 1 Month) No 05/31/2022 3:05 PM EDT Xochitl Faith RN 6. Suicidal Behavior (Lifetime) No 3:05 PM EDT Carmenza Faith RN documented as of this encounter Plan of Treatment Upcoming Encounters Date Type Department Care Team (Late st Contact Info) Description 07/23/2025 Procedure Pass Echo Lab [address] [place] [address] 10/23/2025 2:30 PM EST Appointment Echo Lab [address] [place] [address] Lawson Gamez, [address] [place] [address] 11/04/2025 1:00 PM EST Office Visit [facility] [address] [place] [address] 3rd Floor, [address] [place] [address] Lawson Gamez [address] [place] [address] Shania Caldera, [address] [address] documented as of this encounter Visit Diagnoses Not on filedocumented in this encounter Additional Health Concerns Infection Onset Date Last Indicated Resolved Time CDiff-Risk 03/16/2024 03/16/2024 03/16/2024 3:36 PM EDT CoV-Risk 03/26/2024 03/26/2024 04/06/2024 1:22 AM EDT CDiff-Risk 03/26/2024 03/26/2024 03/27/2024 12:4 9 AM EDT CoV-Risk 02/01/2025 02/01/2025 02/12/2025 1:21 AM EDT documented as of this encounter Care Teams Mortgage Processor Relationship Specialty Start Date End Date Naga Bah MD PCP - General Internal Medicine 10/16/20 01/31/25 Naga Bah MD [address] [place] [address] [address] [place] [address] PCP - General Internal Medicine 02/01/25 documented as of this encounter Additional Source Comments The information contained in this document represents components of the legal health record. It is not the complete legal health record.[facility]
--- OUTSIDE RECORDS SUMMARY | 2025-10-14 19:58 | XMS_ITS | Encounter Summary ---
Author Organization [facility] Address [address] [place] [address] Phone Care Team Providers Care Graphics Intern Name Role Phone Naga Bah MD Primary Care Provider + Naga Bah MD Primary Care Provider + Encounter Details Date Type Department Care Team (Late st Contact Info) Description 09/09/2021 Procedure Pass [facility] Lab [address] [place] [address] Social History Tobacco Use Types Packs/Day Years [...] Date of Assessment Author No Risk Indicated 09/09/2021 5:34 AM EDT Beverly Lopez RN * [place] Suicide Severity Rating Scale (Screener/Recent Self-Report) Question Answer Date of Assessment Author 1. Wish to be (Past 1 Month) No 021 5:34 AM EDT Suhas Lopez, RN 2. Non-Specific Active Suici evaristo Thoughts (Past 1 Month) No 09/09/2021 5:34 AM EDT Suhas Lopez, RN 6. Suicidal Behavior (Lifetime) No 5:34 AM EDT Suhas Lopez, RN documented as of this encounter Plan of Treatment Upcoming Encounters Date Type Department Care Team (Late st Contact Info) Description 07/23/2025 Procedure Pass Echo Lab [address] [place] [address] 10/23/2025 2:30 PM EST Appointment Echo Lab [address] [place] [address] Lawson Gamez, [address] [place] [address] 11/04/2025 1:00 PM EST Office Visit [facility] [address] 3rd Floor, [address] [place] [address] Lawson Gamez, [address] [place] [address] Shania Caldera, [address] [address] documented as of this encounter Visit Diagnoses Not on filedocumented in this encounter Additional Health Concerns Infection Onset Date Last Indicated Resolved Time CoV-Risk Comment:Per note documentation 09/10/2021 09/10/2021 7:45 AM EDT CDiff-Risk 03/16/2024 03/16/2024 03/16/2024 3:36 PM EDT CoV-Risk 03/26/2024 03/26/2024 04/06/2024 1:22 AM EDT CDiff-Risk 03/26/2024 03/26/2024 03/27/2024 12:4 9 AM EDT CoV-Risk 02/01/2025 02/01/2025 02/12/2025 1:21 AM EDT documented as of this encounter Care Teams Graphics Intern Relationship Specialty Start Date End Date Naga Bah MD PCP - General Internal Medicine 10/16/20 01/31/25 Naga Bah MD [address] [place] [address] [address] [place] [address] PCP - General Internal Medicine 02/01/25 documented as of this encounter Additional Source Comments The information contained in this document represents components of the legal health record. It is not the complete legal health record.[facility]
--- OUTSIDE RECORDS SUMMARY | 2025-10-14 19:58 | XMS_ITS | Clinical Summary ---
Author Organization [facility] Address [address] [place] [address] Phone Care Team Providers Care Loading Unit Tool Setter Name Role Phone Naga Bah MD Primary Care Provider + Allergies Active Allergy Reactions Criticality Noted Date Comments Amlodipine 10/16/2020 Aspirin 01/12/2018 Clotrimazole 10/15/2024 Epinephrine 10/16/2020 Ferrous Sulfate 10/15/2024 Furosemide Cramps Low 03/26/2024 Mold 10/15/2024 Ibuprofen Pain Low 10/16/2020 Procaine 01/12/2018 Ofloxacin 03/15/2025 itchiness Penicillins Hives 10/16/2020 Pneumococcal 23-Nuria Ps Vaccine 10/16 [place] 03/15/2025 Simvastatin 03/15/2025 Sulfa (Sulfonamide Antibiotics) 12/23 [...] ONCE DAILY NEEDED FOR ALLERGY 0 Active clopidogrel (PLAVIX) 75 mg tablet Take 1 tablet (75 mg total) by mouth daily. 1 Active nitroglycerin (NITROSTAT) 0.[address] 1 tablet (0.4 mg total) under the tongue every 5 (five) minutes as needed for chest pain. 1 Active warfarin (COUMADIN) 2 MG tablet Take 4 mg by mouth nightly at bedtime. 2 Active metoprolol succinate (TOPROL-XL) 50 MG 24 hr tabletIndicatio ns:Medication dose decreased Take 1.5 tablets (75 mg total) by mouth daily. 135 tablet 3 2 Active Additional Information Patient taking differently: 125 mgOral Daily, Reported on 07/29/2025 magnesium oxide-Mg AA chelate (MAGNESIUM, OXIDE/AA CHELATE,) 300 mg Cap Take 400 mg by mouth. 3 Active amLODIPine (NORVASC) 2.5 MG tablet Take 2.5 mg by mouth. 4 Active furosemide (LASIX) 20 MG tablet Take 1 tablet (20 mg total) by mouth as needed (for fluid overload). Take if weight is up 3 pounds in 2 days, or 5 pounds in 7 days 10 tablet 5 Active Active Problems Problem Noted Date Diagnosed Date Mitral regurgitation 07/29/2025 Assessment & Plan (07/29/2025 11:24 AM EDT): His most recent echocardiogram shows he has severe mitral regurgitation. Dr. Gamez felt he was volume overloaded during his last visit and started him on torsemide 20 mg daily. He took torsemide 10 mg daily and started to have bilateral leg cramping and heart palpitations. Did call this office letting us know this and he is not going to continue taking this medication. In regards to his diuretic he would like to try herbal supplements such as black tea, watermelon and grapes to diurese himself. We did discuss today that this would not be significant to reduce any fluid overload due to his mitral valve in regards to heart failure. We also discussed today that furosemide did not cause his C. difficile and that antibiotics would have done this not the diuretic. Torsemide is likely too much for this patient and we are going to go ahead and trial furosemide 20 mg where the patient can take 10 mg if he has a sudden weight gain of 3 pounds in 2 days or 5 pounds in a week. Today in the office he is euvolemic on exam today and does not look like he needs any diuresing at this time. He at least consumes 68 ounces of fluid a day. He has been drinking 12 ounces of black tea, 16 ounces of coffee and 3-16 ounce bottles of water throughout the day. Additionally he has been trying watermelon and grapes. He states he has not felt better in a long time. We will continue this course without any change to his medications with the exception of restarting furosemide on as-needed basis. He was strongly encouraged to weigh himself daily looking for weight gain of 3 pounds in 2 days or 5 pounds in a week that is not coming off. Acute coronary syndrome 09/09/2021 Assessment & Plan (03/15/2025 9:47 AM EDT): This patient had PCI to the grafts after bypass surgery but has not had any interventions done in quite some time I have ordered him an echo Assessment & Plan (09/25/2021 1:38 PM EDT): Patient doing well after discharge from [facility]. Continue cardiac medications as documented. Patient assured [...] jaw, with enzyme evidence of non-ST elevation [place]. His EKG did not show any acute ischemia. Symptoms improved with sublingual nitro. His physician recruiter has recommended aspirin(patient has a documented allergy [...] tomorrow as per the suggestion of his aircraft refueler. 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 He is unable to tolerate statins. He has tried 5 of them. He is only taking fish oil. He tells me his lipids are checked by his physician at the [facility]. His blood pressure today is normal. He exercises regularly and his tells me that they follow a heart healthy diet. We will arrange for follow-up with Dr. Salas in 6 months. Mixed hyperlipidemia 12/14/2017 Assessment & Plan (07/23/2025 1:43 PM EDT): LDL should be less than 70 Assessment & Plan (03/15/2025 9:48 AM EDT): [...] Encounters Date Type Department Care Team Description 07/29/2025 10:30 AM EDT Office Visit [facility] [address] Floor, [address] [place] [address] Erna Linda, ANGEL Mitral valve insufficiency, unspecified etiology (Primary Dx) 07/24/2025 Telephone [facility] [address], [address] [place] [address] Lawson Gamez DO 07/23/2025 1:45 PM EDT Office Visit [facility] [address] Floor, [address] [place] [address] Lawson Gamez, Shortness of breath (Primary Dx); [place] filter in place; History of coronary artery bypass surgery; Mixed hyperlipidemia from Last 3 Months Immunizations Immunization Administration [...] on file 03/18/2023 No 03/18/2023 No 03/18/2023 Food Answer Date Recorded Within the past 6 months we worried whether our food would run out before we got money to buy more. Never True 07/12/2025 Within the past 6 months the food we bought just didn't last and we didn't have enough money to get more. Never True Residential Stability Answer Date Recor ded What is your housing situation today? I have deborah bolden 07/12/2025 How many times have you move d in the past 12 months? Zero (I did not move) 07/12/2025 Paying for Meds Answer Date Recorded Do you have trouble paying for medicines? No 07/12/2025 Paying Utility Bills Answer Date Record ed Do you have trouble paying your heating or elect ricity bill? No 07/12/2025 Transportation Answer Date Recorded Has the lack of transportati on kept you from medical appointments or from getting medications? No 07/12/2025 Digital Access Answer Date Recorded No 07/12/2025 Yes 07/12/2025 Do you have reliable internet access at home? Ye s 07/12/2025 Do you have a device (e.g., phone, tablet, computer) with a working camera? Yes 07/12/2025 Intimate Partner Violence Answer Date R ecorded Are you denied basic needs s uch as food, clothing, or medical care? No 07/12/2025 In the past 12 months have y ou been in a relationship with a person who hurts, threatens, or tries to control you? No 07/12/2025 Are you denied basic needs s uch as food, clothing, or medical care? No 07/12/2025 In the past 12 months have y ou been in a relationship with a person who hurts, threatens, or tries to control you? No 07/12/2025 Sex and Gender Information Value Date Recorded Sex Assigned at Male 09/09/2021 5:35 AM EDT Legal Sex Male 10:14 PM EDT Gender Identity Male 09/09/2021 5:35 AM EDT Sexual Orientation Straight 09/09/2021 5: 35 AM EDT Last Filed Vital Signs Vital Sign Reading Time Taken Comments Blood Pressure 120/60 07/29/2025 10:24 AM EDT Pulse 53 07/29/2025 10:24 AM EDT Temperature 35.8 C (96.4 F) 07/12/2025 11:00 AM EDT Respiratory Rate 18 07/12/2025 11:30 AM EDT Oxygen Saturation 97% 07/29/2025 10:24 AM EDT Inhaled Oxygen Concentration - - Weight 68.9 kg (152 lb) 07/29/2025 10:24 AM EDT Height 175.3 cm (5' 9.02 ) 07/29/2025 10:24 AM E DT Body Mass Index 22.44 07/29/2025 10:24 AM EDT Plan of Treatment Upcoming Encounters Date Type Department Care Team (Late st Contact Info) Description 07/23/2025 Procedure Pass [place] [address] 10/23/2025 2:30 PM EST Appointment [place] [address] Lawson Gamez, [address] [facility] [address] [place] [address] 11/04/2025 1:00 PM EST Office Visit [facility] [address] Floor, [address] [place] [address] Lawson Gamez, [address] [facility] [address] [place] [address] [email or web address] Shania Caldera, [address] [place] [address] [email or web address] Health Maintenance Due Date Last Done Comments DEPRESSION SCREENING 1947 ZOSTER VACCINES (1 of 2) 1986 RSV VACCINE (1 - 1-dose 75+ series) 2011 Adult Td,Tdap Booster 06/21/2022 06/21/2012 , 01/20/2008, 11/21/2002, Additional history exists INFLUENZA VACCINE (#1) 2025 08/22/2009, 2006 COVID-19 VACCINE ( season) 2025 CREATININE LEVEL 07/12/2026 07/12/2025, , 03/26/2024, Additional history exists POTASSIUM LEVEL 07/12/2026 07/12/2025, 01/19, 03/26/2024, Additional history exists HEPATITIS A VACCINES Aged [...] Procedure Name Priority Date/Time Associated Diagnosis Comments BASIC METABOLIC PANEL (BMP) STAT 07/12/2025 6:21 AM EDT from Last 3 Months or Most Recently Relevant to Health Maintenance Results * (ABNORMAL) Basic metabolic panel (07/12/2025 6:21 AM EDT) SODIUM 143 133 - 146 mmol/L [facility] CHLORIDE 110(H) 96 - 108 mmol/L [facility] POTASSIUM 4.9 3.3 - 5.1 mmol/L [facility] CO2 23 21 - 35 mmol/L [facility] BUN 29(H) 6 - 19 mg/dL [facility] CREATININE 1.30 0.5 - 1.5 mg/dL [facility] GLUCOSE 104(H) 70 - 99 mg/dL [facility] CALCIUM 9.3 8.4 - 10.3 mg/dL [facility] EGFR 53(L) >59 mL/min/1.7 3m2 [facility] Comment:Estimated glomerular filtration rate calculated using the CKD-EPI refit equation. ANION GAP 15 10 - 20 mmol/L [facility] Blood 07/12/2025 6:21 AM EDT 07/12/2025 6:40 AM EDT us Anthony Guerrero DO LAB BLOOD BKR ORDERABLES Sara l Result [facility] [address] [place] [address] from Last 3 Months or Most Recently Relevant to Health Maintenance Insurance [facility] MEDICARE HMO REPLACEMENT [place] [place] [employer] [place]ACEMENT Member Subscriber Plan / Payer (Ef fective 2018-Present) Name:Lawson Grewal Relation to Subscriber:Self Name:Lawson Grewal Payer ID:Not on file Type:Medicare Address: [address] [employer]ALTH [place] [employer] H[place] REPLACEMENT [place] [place] [employer] [place] REPLACEMENT Member Subscriber Plan / Payer (Ef fective 2018-Present) Name:Lawson Grewal Relation to Subscriber:Self Name:Lawson Grewal Payer ID:Not on file Type:Medicare Address: [address] [employer] [place] [employer] H[employer] REPLACEMENT [employer] [place] [employer] [place] REPLACEMENT Member Subscriber Plan / Payer (Ef fective 2018-Present) Name:Lawson Grewal Relation to Subscriber:Self Name:Lawson Grewal Payer ID:Not on file Type:Medicare Address: [address] [employer] [place] [employer] H[employer] REPLACEMENT Member Subscriber Plan / Payer (Ef fective 2018-Present) Name:Lawson Grewal Relation to Subscriber:Self Name:Lawson Grewal Payer ID:Not on file Type:Medicare Address: [address] [employer] [place] [employer] H[employer] REPLACEMENT Member Subscriber Plan / Payer (Ef fective 2018-Present) Name:Lawson Grewal Relation to Subscriber:Self Name:Lawson Grewal Payer ID:Not on file Type:Medicare Address: [address] [employer] [place] [employer] H[employer] REPLACEMENT Member Subscriber Plan / Payer (Ef fective 2018-Present) Name:Lawson Grewal Relation to Subscriber:Self Name:Lawson Grewal Payer ID:Not on file Type:Medicare Address: [address] Advance Directives For more information, please contact: [phone] (9AM - 5PM [facility], Tuesday-Tuesday) * DNR/DNI (No CPR/No Intubation) (Latest Code Status on File) Date Activated Date Inactivated Comments 09/10/2021 9:33 AM Question Answer Comments Code Status Confirmed With: Patient Code Status Communicated To: Inpatient Attending Care Teams Loading Unit Tool Setter Relationship Specialty Start Date End Date Naga Bah MD [address] [facility] [address] [place] [address] PCP - General Internal Medicine 02/01/25 Additional Source Comments The information contained in this document represents components of the legal health record. It is not the complete legal health record.[facility]
--- OUTSIDE RECORDS SUMMARY | 2025-10-14 19:58 | XMS_ITS | Encounter Summary ---
Author Organization [facility] Address [address] [place] [address] Phone Care Team Providers Care Middle School Combination Teacher Name Role Phone Naga Bah MD Primary Care Provider + Naga Bah MD Primary Care Provider + Encounter Details Date Type Department Care Team (Late Contact Info) Description 09/10/2021 Procedure Pass [facility] [address] [place] [address] Social History Tobacco Use Types Packs/Day Years [...] Upcoming Encounters Date Type Department Care Team ([facility] Contact Info) Description 07/23/2025 Procedure Pass Echo Lab [address] [place] [address] 10/23/2025 2:30 PM EST Appointment Echo Lab [address] [place] [address] Lawson Gamez, DO [address] [facility] [address] [place] [address] [email or web address] 11/04/2025 1:00 PM EST Office Visit [facility] [address]rd Floor, [address] [place] [address] Lawson Gamez, DO [address] [facility] [address] [place] [address] Shania Caldera, [address] [address] documented as of this encounter Visit Diagnoses [...] documented as of this encounter Care Teams Middle [employer] Combination Teacher Relationship Specialty Start Date End Date Naga Bah MD PCP - General Internal Medicine 10/16/20 01/31/25 Naga Bah MD [address] [facility] [address] [place] [address] PCP - General Internal Medicine 02/01/25 documented as of this encounter Additional Source Comments The information contained in this document represents components of the legal health record. It is not the complete legal health record.[facility]
--- OUTSIDE RECORDS SUMMARY | 2025-10-14 19:58 | XMS_ITS | Encounter Summary ---
Author Organization [facility] Address [address] [place] [address] Phone Care Team Providers Care Rotary Kiln Operator Name Role Phone Naga Bah MD Primary Care Provider + Naag Bah MD Primary Care Provider + Encounter Details Date Type Department Care Team (Late st Contact Info) Description 03/26/2024 Procedure Pass [facility], Ct Scan - [facility] [address] [place] [address] Social History Tobacco Use Types Packs/Day Years [...] with a working camera? Not on file Sex and Gender Information Value Date Recorded Sex Assigned at Male 09/09/2021 5:35 AM EDT Legal Sex Male 10:14 PM EDT Gender Identity Male 09/09/2021 5:35 AM EDT Sexual Orientation Straight 09/09/2021 5: 35 AM EDT documented as of this encounter Functional Status * Calculated C-SSRS Risk Score (Lifetime/Recent) Answer Date of Assessment Author No Risk Indicated 03/26/2024 7:25 PM EDT Nelly Ruiz, NEEMA * [place] Suicide Severity Rating Scale (Screener/Recent Self-Report) Question Answer Date of Assessment Author 1. Wish to be (Past 1 Month) No 024 7:25 PM EDT Nelly Baum, NEEMA 2. Non-Specific Active Suici evaristo Thoughts (Past 1 Month) No 03/26/2024 7:25 PM EDT Marlen Baum RN 6. Suicidal Behavior (Lifetime) No 7:25 PM EDT Nelly Baum, NEEMA documented as of this encounter Plan of Treatment Upcoming Encounters Date Type Department Care Team (Late st Contact Info) Description 07/23/2025 Procedure Pass [facility] [place] [address] 10/23/2025 2:30 PM EST Appointment [facility] [place] [address] Lawson Gamez [address] [address] 11/04/2025 1:00 PM EST Office Visit [facility] [address] Floor, [address] [place] [address] Lawson Gamez DO [address] [place] [address] Shania Caldera, HEALTH INFORMATION [employer] [address] [place] [address] documented as of this encounter Visit Diagnoses Not on filedocumented in this encounter Additional Health Concerns Infection Onset Date Last Indicated Resolved Time CoV-Risk 03/26/2024 03/26/2024 04/06/2024 1:22 AM EDT CDiff-Risk 03/26/2024 03/26/2024 03/27/2024 12:4 9 AM EDT CoV-Risk 02/01/2025 02/01/2025 02/12/2025 1:21 AM EDT documented as of this encounter Care Teams Rotary Kiln Operator Relationship Specialty Start Date End Date Naga Bah MD PCP - General Internal Medicine 10/16/20 01/31/25 Naga Bah MD [address] [place] [address] [address] [place] [address] PCP - General Internal Medicine 02/01/25 documented as of this encounter Additional Source Comments The information contained in this document represents components of the legal health record. It is not the complete legal health record.[facility]
== END 2025-10-14 15:18 | disposition home or self-care (01) ==
LOC: HO.HMGAL 15:15
PROVIDERS: PCP Internal Medicine; Visit Provider Registered Nurse Emergency
DX: J30.89 Other allergic rhinitis (principal)
CPT/HCPCS: 95117; 95165